=== PATIENT | male | born 1990 | race Caucasian/White ===

== ENCOUNTER 2019-11-18 20:21 | Emergency (ER) | payer OTHER ==
[~2019-11-18] VITALS: Ht 165.1 cm; Wt 90.7 kg
[2019-11-18 20:40] VITALS: BP 146/79
--- NOTE | 2019-11-18 20:46 | NUR ---
PT AMBULATED WITH STEADY GAIT TO LOBBY.
--- NOTE | 2019-11-18 21:00 | NUR ---
PT TAKEN TO BED 11
--- NOTE | 2019-11-18 21:00 | NUR ---
X-Ray at bedside.
--- NOTE | 2019-11-18 21:10 | NUR ---
C/O LEFT ANKLE PAIN X YESTERDAY. 01/23 PAIN DESCRIBES IT SORE. TOOK IBUPROFEN THIS AM WITH RELIEF. LEFT ANKLE SHOWS SWELLING. NO REDNESS. CMS INTACT ON BLE. VSS. PT JUMPED OFF HIS TRUNK AND LANDED ON ROLLED UP CABLES AND TWISTNG HIS LEFT ANKLE. NO OBVIOUS DEFORMITY NOTED. NKDA. PMH: DENIES.
--- NOTE | 2019-11-18 21:19 | NUR ---
Dr. Huynh examining patient.
--- NOTE | 2019-11-18 21:26 | NUR ---
TIFF WRAP PLACED ON PT L ANKLE. +CSM
[2019-11-18 21:28] VITALS: BP 146/79
--- NOTE | 2019-11-18 21:28 | NUR ---
Patient discharged with v/s stable. Written and verbal after care instructions given and explained. Patient verbalized understanding. Ambulatory with steady gait. All questions addressed prior to discharge. Advised to follow up with PMD.
== END 2019-11-18 21:28 | disposition home or self-care (01) ==
LOC: MED 20:21
DX: S93.402A Sprain of unspecified ligament of left ankle, initial encounter (principal); X58.XXXA Exposure to other specified factors, initial encounter; Y93.39 Activity, other involving climbing, rappelling and jumping off; Y92.89 Other specified places as the place of occurrence of the external cause; Y99.8 Other external cause status
CPT/HCPCS: 73610; 99283; Q0092